=== PATIENT | male | born 2000 | race Caucasian/White ===

== ENCOUNTER 2023-12-06 13:27 | Emergency (ER) | payer MEDICAID, SELFPAY ==
[2023-12-06] VITALS (22 sets, daily range): BP systolic 91–132; BP diastolic 49–81; PULSE 52–93; RESP 18; TEMP 36.4; O2SAT 96–99; BMI 23.6
--- NOTE | 2023-12-06 13:59 | ED_ITS ---
HPI - General Adult General Time Seen by Provider: 13:59 Date Seen: 12/06/23 Chief complaint: Syncope/Fainted Stated complaint: Low bp Time Seen by Provider: 12/06/23 13:33 Source: patient and RN notes reviewed Mode of arrival: ambulatory Limitations: no limitations History of Present Illness HPI narrative: This 23-year-old male is accompanied by female relative into the ER for an episode of syncope at work. He notes that he was feeling lightheaded and dizzy before this happened, did not know that he was going to pass out. He supposedly went down the wall, potentially did hit his head on the wall. He is denying any pain at this point. Is not feeling lightheaded or dizzy now. He notes he ate breakfast around 9:00 a.m. today, ate 2 eggs, did not drink anything. He had not eaten lunch yet, lunch would be around 2:00 p.m. for him. He is feeling no pain, has no headache, no visual changes, no neck pain. He is not feeling short of breath, no chest pain, no palpitations. He notes when he came to, had little crampy sensation like he might have to the defecate her go to the bathroom but did not do so. This past. He notes no abdominal pain now. He has had no prior nausea vomiting or diarrhea. Denies any urinary symptoms. Patient is on Invega, had the 1st injection about a month ago and subsequent 130 days after that, is now on 3 month injections. He is vaping THC about twice a day. His mom is concerned that this may be interacting, he does not want to think that that is likely. Related Data Home Medications Medication Instructions Recorded Confirmed Invega 12/06/23 Allergies Allergy/AdvReac Type Severity Reaction Status Date / Time No Known Drug Allergies Allergy Verified 12/06/23 13:39 Review of Systems Status of ROS: Reports: 6 or more systems reviewed and unremarkable except as noted in History and below PFSH PFSH Social History Smoking Status: Never smoker Do you use any of these nicotine containing products: None Second hand tobacco smoke exposure: No How often do you have a drink containing alcohol: never How often do you have six or more drinks on one occasion: Never AUDIT-C Alcohol total score: 0 Non-prescribed substance use: denies use service: No Exam Const: Vital Signs, click to edit/add: Vital Signs - 24 hr 12/06/23 13:37 12/06/23 14:08 Temperature 97.5 F L Pulse Rate [Right Pulse Oximeter] 58 L Respiratory Rate 18 Blood Pressure [Ri ght Upper Arm] 132/81 Pulse Oximetry 98 99 Oxygen Delivery Me thod Room Air Patient is alert, interactive, no apparent distress. Pupils are equal round reactive, extraocular muscles intact. Sclera clear. Symmetrical facial function. His speech is succinct, does seem to have some psychomotor slowing, speech is definitely slow. No midline tenderness of his neck, posterior occiput is completely nontender, no raised areas, no evidence of any abrasion. No cervical adenopathy, no thyromegaly masses or nodules, sits up easily, lungs are clear, no wheezing or crackles. No midline tenderness of his back. CV regular rate and rhythm, no murmur, normal S1-S2, no S3-S4. Abdomen is soft, nontender, nondistended, no organomegaly, no rebound or guarding. He is ambulatory in the ED of his own accord, did get up to go to the bathroom. I note no tremors. Documenting provider has reviewed patient's vital signs: yes Course Course ED Course: Will establish an IV, give him a L of IV fluids, check appropriate labs. Will make sure his kidney and liver functions are normal, will also check a magnesium. Make sure his white blood count is normal. Does not sound like there is any seizure activity. His blood pressure now is back to normal, no evidence of any hypertensive disease. Will get an EKG to make sure his QT is appropriate, have him on cardiac monitoring to ensure no rhythm disturbance. Glucose will be part of the comprehensive metabolic panel. Did review with him that the THC could be be effectively lowering his blood pressure at times causing the side effects of the dizziness and fainting. Did also review with him that he needs to eat and drink adequately. He is giving no focal symptoms for any infectious etiology or being ill. Will see how he does here and see what his labs show. Do not feel he needs any neuro imaging, is completely asymptomatic in this certainly sounds like it was a syncopal episode. Reevaluation(s) Time of Reevaluation #1: 15:45 Reevaluation #1: Reviewed with patient that his labs and EKG are looking good. He has completed his fluids. He states he is feeling much better. Will have nursing staff just check orthostatics to ensure that there are no changes. If these are okay, plan to discharge to home. Time of Reevaluation #2: 16:07 Reevaluation #2: Patient's vital signs show no hypertension, no evidence of orthostatic hypotension at this time. Will discharge to home. Vital Signs Vital signs: Initial Vital Signs Temperature 97.5 F L 12/06/23 13:37 Temperature Source Temporal Artery Scan 12/06/23 13:37 Pulse Rate 58 L 12/06/23 13:37 Respiratory Rate 18 12/06/23 13:37 Blood Pressure 132/81 12/06/23 13:37 Blood Pressure Mean 98 12/06/23 13:37 Blood Pressure Position Sitting 12/06/23 13:37 Pulse Oximetry 98 12/06/23 13:37 Oxygen Delivery Method Room Air 12/06/23 13:37 Vital Signs Temperature 97.5 F L 12/06/23 13:37 Pulse Rate 58 L 12/06/23 13:37 Respiratory Rate 18 12/06/23 13:37 Blood Pressure 132/81 12/06/23 13:37 Pulse Oximetry 98 12/06/23 13:37 Oxygen Delivery Method Room Air 12/06/23 13:37 Temperature 97.5 F L 12/06/23 13:37 Pulse Rate 58 L 12/06/23 13:37 Respiratory Rate 18 12/06/23 13:37 Blood Pressure 132/81 12/06/23 13:37 Pulse Oximetry 99 12/06/23 14:08 Oxygen Delivery Method Room Air 12/06/23 13:37 Medications Administered Medications: Generic Name Dose Route Start Last Admin Trade Name Freq PRN Reason Stop Dose Admin Sodium Chloride 1,000 mls @ 500 mls/hr 12/06/23 14:09 12/06/23 14:10 0.9 % Sodium Chloride 1000 Ml IV 12/06/23 16:08 500 mls/hr .Q2H MONICA Administration Medical Decision Making Lab Data Lab results reviewed: Yes I reviewed the patient's lab results Labs: Lab Results 12/06/23 12/06/23 12/06/23 Range/Units 14:21 14:21 14:21 WBC 10.50 (4.50-11.00) K/uL RBC 4.73 (4.30-5.90) m/uL Hgb 13.8 (13.5-17.5) gm/dL Hct 39.7 (37.0-53.0) % MCV 84 (80-100) fL MCH 29 (26-34) pg MCHC 35 (32-36) gm/dL RDW Coeff of Keli 12.0 (11.5-15.5) % Plt Count 225 (140-440) K/uL Neut % (Auto) 78.6 H (42.0-72.0) % Lymph % (Auto) 14.1 L (20-44) % [place] % (Auto) 5.7 (0.0-11.0) % Eos % (Auto) 1.3 (0.0-7.0) % Baso % (Auto) 0.2 (0.0-3.0) % Neut # (Auto) 8.30 H (1.7-7.0) K/uL Lymph # (Auto) 1.50 (0.90-2.90) K/uL [place] # (Auto) 0.60 (0.00-0.90) K/UL Eos # (Auto) 0.14 (0.00-0.50) K/uL Baso # (Auto) 0.02 (0.00-0.30) K/uL Abs Immat Gran (auto) 0.01 (0.00-0.30) K/uL Imm/Tot Granulo (auto) 0.1 % Sodium Cancelled 141 Potassium Cancelled 4.4 Chloride Cancelled Carbon Dioxide Anion Gap BUN Creatinine Estimated Creat Clear Estimated GFR Glucose Calcium Magnesium (1.5-2.6) mg/dL Total Bilirubin AST ALT Alkaline Phosphatase Troponin I (0.01-0.04) ng/mL Total Protein Albumin 12/06/23 12/06/23 12/06/23 Range/Units 14:21 14:21 14:21 WBC (4.50-11.00) K/uL RBC (4.30-5.90) m/uL Hgb (13.5-17.5) gm/dL Hct (37.0-53.0) % MCV (80-100) fL MCH (26-34) pg MCHC (32-36) gm/dL RDW Coeff of Keli (11.5-15.5) % Plt Count (140-440) K/uL Neut % (Auto) (42.0-72.0) % Lymph % (Auto) (20-44) % [place] % (Auto) (0.0-11.0) % Eos % (Auto) (0.0-7.0) % Baso % (Auto) (0.0-3.0) % Neut # (Auto) (1.7-7.0) K/uL Lymph # (Auto) (0.90-2.90) K/uL [place] # (Auto) (0.00-0.90) K/UL Eos # (Auto) (0.00-0.50) K/uL Baso # (Auto) (0.00-0.30) K/uL Abs Immat Gran (auto) (0.00-0.30) K/uL Imm/Tot Granulo (auto) % Sodium Potassium Chloride 105 Carbon Dioxide Cancelled 26 Anion Gap Cancelled 10 BUN Cancelled Creatinine Estimated Creat Clear Estimated GFR Glucose Calcium Magnesium (1.5-2.6) mg/dL Total Bilirubin AST ALT Alkaline Phosphatase Troponin I (0.01-0.04) ng/mL Total Protein Albumin 12/06/23 12/06/23 12/06/23 Range/Units 14:21 14:21 14:21 WBC (4.50-11.00) K/uL RBC (4.30-5.90) m/uL Hgb (13.5-17.5) gm/dL Hct (37.0-53.0) % MCV (80-100) fL MCH (26-34) pg MCHC (32-36) gm/dL RDW Coeff of Keli (11.5-15.5) % Plt Count (140-440) K/uL Neut % (Auto) (42.0-72.0) % Lymph % (Auto) (20-44) % [place] % (Auto) (0.0-11.0) % Eos % (Auto) (0.0-7.0) % Baso % (Auto) (0.0-3.0) % Neut # (Auto) (1.7-7.0) K/uL Lymph # (Auto) (0.90-2.90) K/uL [place] # (Auto) (0.00-0.90) K/UL Eos # (Auto) (0.00-0.50) K/uL Baso # (Auto) (0.00-0.30) K/uL Abs Immat Gran (auto) (0.00-0.30) K/uL Imm/Tot Granulo (auto) % Sodium Potassium Chloride Carbon Dioxide Anion Gap BUN 24 Creatinine Cancelled 1.2 Estimated Creat Clear Cancelled 100.23 Estimated GFR Cancelled Glucose Calcium Magnesium (1.5-2.6) mg/dL Total Bilirubin AST ALT Alkaline Phosphatase Troponin I (0.01-0.04) ng/mL Total Protein Albumin 12/06/23 12/06/23 12/06/23 Range/Units 14:21 14:21 14:21 WBC (4.50-11.00) K/uL RBC (4.30-5.90) m/uL Hgb (13.5-17.5) gm/dL Hct (37.0-53.0) % MCV (80-100) fL MCH (26-34) pg MCHC (32-36) gm/dL RDW Coeff of Keli (11.5-15.5) % Plt Count (140-440) K/uL Neut % (Auto) (42.0-72.0) % Lymph % (Auto) (20-44) % [place] % (Auto) (0.0-11.0) % Eos % (Auto) (0.0-7.0) % Baso % (Auto) (0.0-3.0) % Neut # (Auto) (1.7-7.0) K/uL Lymph # (Auto) (0.90-2.90) K/uL [place] # (Auto) (0.00-0.90) K/UL Eos # (Auto) (0.00-0.50) K/uL Baso # (Auto) (0.00-0.30) K/uL Abs Immat Gran (auto) (0.00-0.30) K/uL Imm/Tot Granulo (auto) % Sodium Potassium Chloride Carbon Dioxide Anion Gap BUN Creatinine Estimated Creat Clear Estimated GFR 86 Glucose Cancelled 93 Calcium Cancelled 9.5 Magnesium 2.1 (1.5-2.6) mg/dL Total Bilirubin Cancelled AST ALT Alkaline Phosphatase Troponin I (0.01-0.04) ng/mL Total Protein Albumin 12/06/23 12/06/23 12/06/23 Range/Units 14:21 14:21 14:21 WBC (4.50-11.00) K/uL RBC (4.30-5.90) m/uL Hgb (13.5-17.5) gm/dL Hct (37.0-53.0) % MCV (80-100) fL MCH (26-34) pg MCHC (32-36) gm/dL RDW Coeff of Keli (11.5-15.5) % Plt Count (140-440) K/uL Neut % (Auto) (42.0-72.0) % Lymph % (Auto) (20-44) % [place] % (Auto) (0.0-11.0) % Eos % (Auto) (0.0-7.0) % Baso % (Auto) (0.0-3.0) % Neut # (Auto) (1.7-7.0) K/uL Lymph # (Auto) (0.90-2.90) K/uL [place] # (Auto) (0.00-0.90) K/UL Eos # (Auto) (0.00-0.50) K/uL Baso # (Auto) (0.00-0.30) K/uL Abs Immat Gran (auto) (0.00-0.30) K/uL Imm/Tot Granulo (auto) % Sodium Potassium Chloride Carbon Dioxide Anion Gap BUN Creatinine Estimated Creat Clear Estimated GFR Glucose Calcium Magnesium (1.5-2.6) mg/dL Total Bilirubin 0.5 AST Cancelled 20 ALT Cancelled 18 Alkaline Phosphatase Cancelled Troponin I (0.01-0.04) ng/mL Total Protein Albumin 12/06/23 12/06/23 12/06/23 Range/Units 14:21 14:21 14:21 WBC (4.50-11.00) K/uL RBC (4.30-5.90) m/uL Hgb (13.5-17.5) gm/dL Hct (37.0-53.0) % MCV (80-100) fL MCH (26-34) pg MCHC (32-36) gm/dL RDW Coeff of Keli (11.5-15.5) % Plt Count (140-440) K/uL Neut % (Auto) (42.0-72.0) % Lymph % (Auto) (20-44) % [place] % (Auto) (0.0-11.0) % Eos % (Auto) (0.0-7.0) % Baso % (Auto) (0.0-3.0) % Neut # (Auto) (1.7-7.0) K/uL Lymph # (Auto) (0.90-2.90) K/uL [place] # (Auto) (0.00-0.90) K/UL Eos # (Auto) (0.00-0.50) K/uL Baso # (Auto) (0.00-0.30) K/uL Abs Immat Gran (auto) (0.00-0.30) K/uL Imm/Tot Granulo (auto) % Sodium Potassium Chloride Carbon Dioxide Anion Gap BUN Creatinine Estimated Creat Clear Estimated GFR Glucose Calcium Magnesium (1.5-2.6) mg/dL Total Bilirubin AST ALT Alkaline Phosphatase 43 Troponin I < 0.01 L (0.01-0.04) ng/mL Total Protein Cancelled 8.0 Albumin Cancelled 4.9 ECG Data Attestation: I personally reviewed and interpreted this ECG as follows: (Normal sinus rhythm, 65 beats per minute, normal EKG. No arrhythmia, no ischemic change. QT corrected 411 milliseconds.) Discharge Plan Discharge Clinical Impression: Syncope Qualifiers: Syncope type: unspecified Qualified Code(s): R55 - Syncope and collapse Patient Disposition: Home, Self-Care Condition: Stable Instructions: Syncope (ED) Additional Instructions: You need to drink more during the day, this likely is at least part of the cause of your symptoms today. I do think that THC vaping is not good for you and your current psychiatric medicine. Do recommend re-evaluation if you have further episodes of syncope. If there are further episodes of syncope, your psychiatric medicine may need to be changed no but this would only happen under the advisement of your psychiatrist. Activity Level: Activity as Tolerated Discharge Diet: Regular Prescriptions: No Action Invega Follow Up/Referrals: Mookie Anthony MD [Primary Care Provider] - Stand Alone Forms: [employer] Info Instructions
[2023-12-06] MEDS: 0.9 % SODIUM CHLORIDE 1000 ml 1,000 ML 500 ML IV (14:10)
[2023-12-06 14:30] LABS: Basophils Absolute Auto 0.02 K/uL (0.00-0.30); Basophils Percent Auto 0.2 % (0.0-3.0); Eosinophils Absolute Auto 0.14 K/uL (0.00-0.50); Eosinophils Percent Auto 1.3 % (0.0-7.0); Hematocrit 39.7 % (37.0-53.0); Hemoglobin* 13.8 gm/dL (13.5-17.5); Immature Granulocytes Abs Auto 0.01 K/uL (0.00-0.30); Immature Granulocytes Pct Auto 0.1 %; Lymphocytes Percent Auto 14.1 % (20-44); Mean Corpuscular HGB Conc 35 gm/dL (32-36); Mean Corpuscular Hemoglobin 29 pg (26-34); Mean Corpuscular Volume 84 fL (80-100); Monocytes Percent Auto 5.7 % (0.0-11.0); Neutrophils Percent Auto 78.6 % (42.0-72.0); Platelet Count* 225 K/uL (140-440); Red Blood Count 4.73 m/uL (4.30-5.90)
[2023-12-06 14:34] LABS: Slide Review Reflex No
[2023-12-06 14:48] LABS: Albumin* 4.9 g/dL (3.3-5.0); Chloride* 105 mmol/L (96-114); Potassium* 4.4 mmol/L (3.6-5.1); Sodium* 141 mmol/L (135-149)
[2023-12-06 14:50] LABS: Creatinine* 1.2 mg/dL (0.5-1.5); Est. Creatinine Clearance* 100.23; Estimated Glomerular Filt Rate 86 ml/min
[2023-12-06 14:51] LABS: Alanine Aminotransferase* 18 U/L (4-50); Alkaline Phosphatase* 43 U/L (40-150); Anion Gap 10 mEq/L (7-15); Aspartate Amino Transferase* 20 U/L (12-35); Bilirubin Total* 0.5 mg/dL (0.1-1.5); Blood Urea Nitrogen* 24 mg/dL (5-24); Calcium* 9.5 mg/dL (8.4-10.6); Carbon Dioxide* 26 mmol/L (20-32); Glucose* 93 mg/dL (60-115); Magnesium* 2.1 mg/dL (1.5-2.6)
[2023-12-06 15:14] LABS: Troponin I* < 0.01 ng/mL (0.01-0.04)
--- NOTE | 2023-12-11 14:47 | ED.NURSE ---
chart accessed as he is requesting a note to return to work. this was provided per dr flores. he will pick this note up tomorrow at the ed admissions desk.
== END 2023-12-06 16:29 | disposition home or self-care (01) ==
PROVIDERS: Emergency Provider Family Medicine; PCP Family Medicine
DX: R55 Syncope and collapse (principal)
CPT/HCPCS: 36415; 80053; 83735; 84484; 85025; 93005; 94761; 99284; J7030